=== PATIENT | female | born 1995 | race Hispanic/Latino ===

== ENCOUNTER 2017-09-05 12:07 | Day surgery (SDC) | payer SELFPAY, OTHER ==
[2017-09-05 13:04] VITALS: BP 133/73; TEMP 98.7; BMI 37.1
--- NOTE | 2017-09-05 13:34 | PRG ---
DATE OF SERVICE: 09/05/2017 CHIEF COMPLAINT: Decreased movement. PRIMARY OB: Clinic. HISTORY OF PRESENT ILLNESS: The patient is a 22-year-old G1, P0 female with an intrauterine pregnanc y at 39 weeks and 5 days, who is presenting today with a 1-day history of decreased movement, w hich she reports spontaneously resolved once she got here. The patient had no complications with thi s . She is scheduled for a visit later today. She does report history of migraine s earlier in the that since spontaneously resolved. The patient denies fever, fall, headac he, chest pain, shortness of breath, nausea, vomiting, diarrhea, constipation. She does report Pupps with this and is currently on triamcinolone and hydroxyzine for symptom control. The corwin ent denies vaginal bleeding, leakage of fluid, urinary urgency. OB LABS: Unavailable at time of dictation. REVIEW OF SYSTEMS: Per HPI. PHYSICAL EXAMINATION: VITAL SIGNS: Blood pressure 133/73, heart rate of 99, respiratory rate 18, and temperature 98.7. GENERAL: She appears to be in no acute distress. She is alert and oriented, cooperative and pleasan t to interact with. HEAD: Normocephalic, atraumatic. LUNGS: Clear to auscultation bilaterally. HEART: Regular rate and rhythm. ABDOMEN: Soft and gravid. EXTREMITIES: Nontender, nonedematous. heart tracing performed or NST performed for decreased movement. Baselines in the 150s w ith moderate long-term variability, positive accelerations, no decelerations. Tocometer shows some i rritability, not felt by the patient. ASSESSMENT AND PLAN: The patient is a 22-year-old G1, P0 female with an intrauterine at 39 weeks and 5 days, who came with decreased movement. Reassurance has been given to the patient with a reactive NST. The patient has been given extract instructions to follow up with her primary OB as scheduled.
== END 2017-09-05 13:25 | disposition home or self-care (01) ==
LOC: L&D/OP 12:07
PROVIDERS: ATTEND Obstetrics & Gynecology
DX: O36.8130 Decreased fetal movements, third trimester, not applicable or unspecified (principal); Z3A.39 39 weeks gestation of pregnancy; Z79.52 Long term (current) use of systemic steroids; Z79.899 Other long term (current) drug therapy
CPT/HCPCS: 59025; 99282

== ENCOUNTER 2017-09-09 15:02 | Inpatient (IN) | payer MEDICAID, OTHER, SELFPAY ==
[2017-09-09 15:43] VITALS: BMI 37.1
[2017-09-09 16:06] LABS: Amnisure Test RUPTURE DETECTED (No Rupture)
[2017-09-09 16:08] LABS: Amnisure Internal Control QC ACCEPTABLE (ACCEPTABLE)
[2017-09-09] MEDS ORDERED: Ondansetron HCl/PF 4 MG/2 ML Vial IVP PRN (16:48)
[2017-09-09] MEDS ORDERED: Acetaminophen 500 MG TAB PO PRN (16:48)
[2017-09-09] MEDS ORDERED: Promethazine HCl 25 MG/ML VIAL IM PRN (16:48)
[2017-09-09] MEDS ORDERED: LR / Pitocin 40 units/1000 ml 1,000 ML IV PRN (16:48)
[2017-09-09] MEDS ORDERED: Lidocaine 1% (PF) 30 ML VIAL SC PRN (16:48)
[2017-09-09] MEDS ORDERED: Ibuprofen 800 MG TAB PO PRN (16:55)
[2017-09-09] MEDS ORDERED: Triamcinolone 0.5 % Ointment 15 Gram Tube TOP PRN (17:04)
[2017-09-09 17:12] LABS: Hemoglobin 12.4 g/dL (12.0-16.0); Mean Corpuscular HGB CONC 33.6 g/dL (32.0-36.0); Mean Corpuscular Hemoglobin 29.1 pg (27.0-31.0); Mean Corpuscular Volume 86.5 fl (81.0-99.0); Mean Platelet Volume 8.3 fL (7.4-10.4); Platelet Count 269 thou/uL (130-400); RBC Distribution Width 12.8 % (11.5-14.5); Red Blood Cell (RBC) Count 4.25 mill/uL (4.20-5.40); White Blood Cell (WBC) Count 10.5 thou/uL (4.8-10.8)
[2017-09-09 17:52] LABS: HBSAg Index 0.24 S/CO (0-0.99); Hep B Surf Ag Non-Reactive S/CO (NonReactive)
[2017-09-09 18:01] LABS: Syphilis Antibody Nonreactive (Nonreactive); Syphilis Antibody Index 0.03 S/CO (<1.00 Non-Reactive)
[2017-09-09] MEDS: LR 500 ML/Oxytocin 10 units 500 ML IV SCH (19:08)
--- NOTE | 2017-09-09 22:19 | PDOC.LDPN ---
Labor & Delivery Progress Note - Subjective Subjective: comfortable (22 yo G1 @40.2 wks by LMP presents with PROM. Denies complaints. Feels contractions. ), painful contractions - Objective General: NAD, resting, breathing through contractions Uterine fundus: non tender Dilation: 5 Effacement: 75% Station: -1 FHT: category 1 [place] contractions every: 1-2 minutes - Assessment (1) Term Code(s): Z34.80 - ENCOUNTER FOR SUPRVSN OF NORMAL , UNSP TRIMESTER Current Visit: Yes Status: Acute (2) PROM (premature rupture of membranes) Code(s): O42.90 - AMA ROM, 7TH0 BETW RUPT & ONST LABR, UNSP WEEKS OF GEST Current Visit: Yes Status: Acute (3) PUPP (pruritic urticarial papules and plaques of ) Code(s): O26.86 - PRURITIC URTICARIAL PAPULES AND PLAQUES OF (PUPPP) Current Visit: Yes Status: Acute Plan: continue plan of care, pitocin for augmentation -: 22 yo @ 40.2 wks by LMP, presents for PROM @ 1430 today, admitted. 1.)Term, sIUP with PROM-admitted and currently on pitocin for augmentation of labor. Most recent check /1; We will continue the pitocin and continue labor checks q2h.
[2017-09-09] MEDS: Lactated Ringer's 1,000 ML IV SCH (23:42)
[2017-09-10] MEDS ORDERED: DISCONTINUE ALL PREVIOUS NARCOTICS FS SCH (00:30)
[2017-09-10] MEDS ORDERED: Bupivacaine 0.5% 20 ML, Fentanyl 400 MCG in Sodium Chloride 0.9% 72 ML EPIDURAL SCH (00:30)
[2017-09-10] MEDS ORDERED: Ondansetron HCl/PF 4 MG/2 ML Vial IVP PRN ×3 (01:01→13:16)
[2017-09-10] MEDS ORDERED: ePHEDrine/0.9% NaCl/PF SYRINGE 50 mg/10 ml SLOW IVP PRN (01:01)
[2017-09-10] MEDS ORDERED: Acetaminophen 325 MG TAB PO PRN (01:01)
[2017-09-10] MEDS ORDERED: Promethazine HCl 25 MG/ML VIAL IM PRN ×2 (01:01→13:16)
[2017-09-10] MEDS ORDERED: Eucerin (Mineral Oil/Petrolatum,White) 30 gm Jar TOP PRN ×2 (01:01→13:16)
[2017-09-10] MEDS ORDERED: Lactated Ringer's 500 ML IV PRN (01:01)
[2017-09-10] MEDS ORDERED: diphenhydrAMINE 50 MG/ML VIAL IVP PRN ×2 (01:01→13:16)
[2017-09-10] MEDS ORDERED: Naloxone HCl 0.4 mg/ml Vial IVP PRN ×4 (01:01→13:16)
--- NOTE | 2017-09-10 01:13 | PDOC.LDPN ---
Labor & Delivery Progress Note - Subjective Subjective: painful contractions, vaginal pressure, loss of fluid (she has a posterior sac but reported that she leaked some fluid about an hour ago that was clear), other (22 yo G1 @40.2 wks by LMP presents with PROM. ) - Objective Vital signs reviewed and normal: yes General: breathing through contractions Dilation: 6 Effacement: 90% Station: 0 FHT: category 1 [place] contractions every: 2 minutes IUPC placed: yes - Assessment (1) Term Code(s): Z34.80 - ENCOUNTER FOR SUPRVSN OF NORMAL , UNSP TRIMESTER Current Visit: Yes Status: Acute (2) PROM (premature rupture of membranes) Code(s): O42.90 - AMA ROM, 7TH0 BETW RUPT & ONST LABR, UNSP WEEKS OF GEST Current Visit: Yes Status: Acute (3) PUPP (pruritic urticarial papules and plaques of ) Code(s): O26.86 - PRURITIC URTICARIAL PAPULES AND PLAQUES OF (PUPPP) Current Visit: Yes Status: Acute Plan: continue plan of care, pitocin for augmentation -: 22 yo @ 40.2 wks by LMP, presents for PROM @ 1430 today, admitted for PROM. 1.)Term, sIUP with PROM-admitted and currently on pitocin for augmentation of labor. Most recent check ; We will continue the pitocin and continue labor checks q2h. We placed an IUPC.
[2017-09-10] MEDS ORDERED: Fentanyl 4mcg/Marcaine 0.1% Cassette 100 ML EPIDURAL SCH (01:15)
[2017-09-10] MEDS ORDERED: Communication Order-Pharmacy FS SCH ×2 (01:15→13:30)
--- NOTE | 2017-09-10 03:26 | PDOC.LDPN ---
Labor & Delivery Progress Note - Subjective Subjective: painful contractions, other (22 yo @ 40.2 wks by LMP, presents for PROM @ 1430 today; no compliants; doing well) - Objective Vital signs reviewed and normal: yes General: breathing through contractions Dilation: 6 Effacement: 90% Station: 0 FHT: category 1 [place] contractions every: 2 minutes - Assessment (1) Term Code(s): Z34.80 - ENCOUNTER FOR SUPRVSN OF NORMAL , UNSP TRIMESTER Current Visit: Yes Status: Acute (2) PROM (premature rupture of membranes) Code(s): O42.90 - AMA ROM, 7TH0 BETW RUPT & ONST LABR, UNSP WEEKS OF GEST Current Visit: Yes Status: Acute (3) PUPP (pruritic urticarial papules and plaques of ) Code(s): O26.86 - PRURITIC URTICARIAL PAPULES AND PLAQUES OF (PUPPP) Current Visit: Yes Status: Acute Plan: continue plan of care, pitocin for augmentation -: 22 yo @ 40.2 wks by LMP, presents for PROM @ 1430 today, admitted for PROM. 1.)Term, sIUP with PROM-admitted and currently on pitocin for augmentation of labor. Most recent check - no change from prior check; We will continue the pitocin and continue labor checks q2h. We replaced the IUPC.
[2017-09-10] MEDS: Lactated Ringer's 1,000 ML IV SCH ×3 (03:59→18:25)
--- NOTE | 2017-09-10 04:21 | PDOC.LDPN ---
Labor & Delivery Progress Note - Subjective Subjective: comfortable (G1 @ 40.2 who presented with PROM. No complaints.) - Objective Vital signs reviewed and normal: yes General: NAD, breathing through contractions Dilation: 6 Effacement: 100% Station: 0 [place] contractions every: 1-2minutes Procedures: epidural placed AROM: bloody fluid IUPC placed: yes - Assessment (1) Term Code(s): Z34.80 - ENCOUNTER FOR SUPRVSN OF NORMAL , UNSP TRIMESTER Current Visit: Yes Status: Acute (2) PROM (premature rupture of membranes) Code(s): O42.90 - AMA ROM, 7TH0 BETW RUPT & ONST LABR, UNSP WEEKS OF GEST Current Visit: Yes Status: Acute (3) PUPP (pruritic urticarial papules and plaques of ) Code(s): O26.86 - PRURITIC URTICARIAL PAPULES AND PLAQUES OF (PUPPP) Current Visit: Yes Status: Acute -: 22 yo @ 40.2 wks by LMP, presents for PROM @ 1430 today, admitted for PROM. 1.)Term, sIUP with PROM-admitted and currently on pitocin for augmentation of labor. Most recent check /0; We will continue the pitocin and continue labor checks q2h. Pt received her epidural.
--- NOTE | 2017-09-10 06:29 | PDOC.LDPN ---
Labor & Delivery Progress Note - Subjective Subjective: comfortable, no concerns - Objective Vital signs reviewed and normal: yes General: NAD Dilation: 7 Effacement: 100% Station: -1 FHT: category 1 [place] contractions every: 1-2 minutes Procedures: epidural IUPC placed: yes - Assessment (1) Term Code(s): Z34.80 - ENCOUNTER FOR SUPRVSN OF NORMAL , UNSP TRIMESTER Current Visit: Yes Status: Acute (2) PROM (premature rupture of membranes) Code(s): O42.90 - AMA ROM, 7TH0 BETW RUPT & ONST LABR, UNSP WEEKS OF GEST Current Visit: Yes Status: Acute (3) PUPP (pruritic urticarial papules and plaques of ) Code(s): O26.86 - PRURITIC URTICARIAL PAPULES AND PLAQUES OF (PUPPP) Current Visit: Yes Status: Acute Plan: continue plan of care, pitocin for augmentation, other -: 22 yo @ 40.2 wks by LMP, presents for PROM @ 1430 today, admitted for PROM. 1.)Term, sIUP with PROM- currently on pitocin for augmentation of labor. Most recent check /-1; We will continue the pitocin and continue labor checks q2h. Pt has IUPC and epidural.
[2017-09-10] MEDS: LR 500 ML/Oxytocin 10 units 500 ML IV SCH (08:39)
--- NOTE | 2017-09-10 08:43 | PDOC.LDPN ---
Labor & Delivery Progress Note - Subjective Subjective: comfortable - Objective Vital signs reviewed and normal: yes General: NAD Uterine fundus: palpable contractions Dilation: 10 Effacement: 100% Station: 0 FHT: category 1, variability present, absent or minimal variables [place] contractions every: 1-2 - Assessment (1) PROM (premature rupture of membranes) Code(s): O42.90 - AMA ROM, 7TH0 BETW RUPT & ONST LABR, UNSP WEEKS OF GEST Current Visit: Yes Status: Acute Qualifiers: PROM gestational age: full term Comment: Most recent check . Epidural in place, pain is well controlled. Will allow fetus to labor down. Recheck in 30 mintues. Continue augmentation with pitocin. Cat 1 strip, no concerns. (2) Term Code(s): Z34.80 - ENCOUNTER FOR SUPRVSN OF NORMAL , UNSP TRIMESTER Current Visit: Yes Status: Acute Plan: continue plan of care, pitocin for augmentation
[2017-09-10] MEDS ORDERED: Bupivacaine 0.25% HCL 30 ML VIAL ONE (11:11)
[2017-09-10] MEDS ORDERED: Lidocaine 2% MPF 10 ML AMP (For Epidural Use) ONE ×2 (11:11→15:56)
[2017-09-10] MEDS ORDERED: ePHEDrine/0.9% NaCl/PF SYRINGE 50 mg/10 ml ONE (11:11)
[2017-09-10] MEDS ORDERED: CEFAZOLIN/Water 2 GM/20 ML SYRINGE ONE (11:22)
[2017-09-10] MEDS ORDERED: Bicitra 30 ML UDCUP ONE (11:22)
--- NOTE | 2017-09-10 11:23 | PDOC.LDPN ---
Labor & Delivery Progress Note - Subjective Subjective: comfortable - Objective Vital signs reviewed and normal: yes SVE: C/C/ vtx remains 0 x3 hours [place] contractions every: q 2-3 mins -: 40 week IUP with suspected CPD No progress x3 hours For 1* C/s Consent on chart
[2017-09-10] MEDS ORDERED: CEFAZOLIN/Water 2 GM/20 ML SYRINGE SLOW IVP SCH (11:30)
[2017-09-10] MEDS ORDERED: Bicitra 30 ML UDCUP PO SCH (11:30)
[2017-09-10] MEDS ORDERED: Oxytocin 10 UNITS/ML VIAL ONE ×2 (11:47→12:24)
[2017-09-10] MEDS ORDERED: Morphine PF 1 MG/ML SYR ONE ×2 (11:49→11:50)
[2017-09-10] MEDS ORDERED: Fentanyl 250 MCG/5 ML VIAL ONE (11:58)
[2017-09-10] MEDS ORDERED: Lidocaine 2% 10 ML INJ ONE ×3 (11:59→12:00)
[2017-09-10] MEDS ORDERED: Methylergonovine 0.2 MG/ML VIAL ONE (12:21)
[2017-09-10] MEDS ORDERED: Ondansetron HCl/PF 4 MG/2 ML Vial ONE ×2 (12:30→15:56)
[2017-09-10] MEDS ORDERED: Misoprostol 200 MCG TAB ONE (12:50)
[2017-09-10] MEDS ORDERED: Promethazine HCl 25 MG SUPP PR PRN (13:16)
[2017-09-10] MEDS ORDERED: Naloxone HCl 0.4 mg/ml Vial IV PRN (13:16)
[2017-09-10] MEDS ORDERED: HYDROmorphone 2 MG/ML VIAL SLOW IVP PRN (13:16)
[2017-09-10] MEDS ORDERED: Meperidine HCl/PF 25 MG/ML VIAL SLOW IVP PRN (13:16)
[2017-09-10] MEDS ORDERED: Ketorolac Tromethamine 30 MG/ML VIAL IVP SCH (13:30)
--- NOTE | 2017-09-10 14:54 | OP-2 ---
DATE OF PROCEDURE: 09/10/2017 RESIDENT SURGEON: Dr. Federico Alvarez. MACHINE REPAIR PERSON SURGEON: Dr. Cait Gonzalez. ATTENDING SURGEON: Jesús Trevino M.D. PROCEDURE: Primary low transverse section. PREOPERATIVE DIAGNOSES: 1. Term intrauterine in labor. 2. Prolonged second stage of labor. POSTOPERATIVE DIAGNOSES: 1. Term intrauterine , delivered. 2. hemorrhage. ANESTHESIA: Spinal. INDICATIONS: The patient is a 22-year-old G1, P0 female at 48.3 weeks' gestation who presented in [facility], dilated to 10 cm overnight, but failed to descend past 0 station after 3 hours of being fully di lated, and an hour and a half attempted at pushing. Due to the lack of descent of the head, th e presence of caput on exam and the fact that the patient had been ruptured for almost 20 hours. Dec ision was made with the patient's agreement to move to . PROCEDURE IN DETAIL: After risks, benefits, and alternatives were explained to patient, she gave inf ormed consent. Preoperative antibiotics included cefazolin 2 gram IV. The patient was taken to the operating room and spinal anesthesia was initiated. She was placed in supine position with a left ti lt and prepped and draped in usual sterile fashion. Pfannenstiel incision was made with scalpel and carried down to the level of the fascia, which was sharply nicked. Fascial cut was extended bilatera lly with Maldonado scissors. Inferior and superior edges of the cut fascial edges were elevated with Monzon er clamps and the underlying rectus muscles were sharply and bluntly dissected free. Recti were divi ded digitally and retracted manually. Peritoneum was entered bluntly and retracted manually. Bladde r blade was placed. Bladder flap was created with Metzenbaum scissors. Low transverse score was mad e with scalpel and uterus was entered in the midline with scalpel. Clear fluid was seen. Hysterotom y was extended manually. Infant was noted to be vertex and was easily delivered with fundal pressure . Mouth and nares were bulb suctioned. Cord clamped and cut and grossly normal. Male was chavez nded to waiting nurse. Cord blood was obtained. Placenta was manually extracted and found to be int act with three-vessel cord and discarded. Uterus was externalized and endometrium was treated with a dry lap. Bladder blade was replaced and uterus was closed with a running locking 0 Vicryl suture, f ollowed with running locking 0 Monocryl suture. Following this, hemostasis was noted. The abdomen w as noted to be free of clots as well. The uterus was internalized and hysterotomy was again noted to be hemostatic. The peritoneum was closed with a 3-0 Monocryl. Fascia was closed with a running non locking 0 PDS suture. Subq tissue was irrigated and there were no bleeders. Skin was approximated w ith 4-0 Monocryl and pressure dressing was placed. All counts were correct. The patient tolerated p rocedure well and was taken to recovery room in stable condition. ESTIMATED BLOOD LOSS: 1000 mL COMPLICATIONS: None. SPECIMENS: Cord blood sent to lab for blood type. FINDINGS: Grossly normal male with Apgars of 8 and 9. Grossly normal placenta with three-ves roly cord, discarded. DRAINS: Damon to gravity draining clear urine.
[2017-09-10] MEDS ORDERED: HYDROcodone/Acetaminophen 5/325 mg Tablet PO PRN (15:48)
[2017-09-10] MEDS ORDERED: Lanolin Ointment 7 GM TUBE TOP PRN (15:48)
[2017-09-10] MEDS ORDERED: Misoprostol 200 MCG TAB PR SCH (15:48)
[2017-09-10] MEDS ORDERED: Adacel (T-DAP) 0.5 ML VIAL IM ONE (15:48)
[2017-09-10] MEDS ORDERED: Lidocaine 1% PF 5 ML VIAL ONE (15:56)
[2017-09-10] MEDS: Ketorolac Tromethamine 30 MG/ML VIAL IVP PRN (16:10)
[2017-09-10] MEDS: Ferrous Sulfate 325 MG TAB PO SCH (17:58)
[2017-09-11] MEDS: Lactated Ringer's 1,000 ML IV SCH ×3 (03:52→18:05)
[2017-09-11] MEDS: Ketorolac Tromethamine 30 MG/ML VIAL IVP PRN ×2 (03:53→13:16)
[2017-09-11 06:25] LABS: Hemoglobin 8.1 g/dL (12.0-16.0); Mean Corpuscular HGB CONC 33.9 g/dL (32.0-36.0); Mean Corpuscular Hemoglobin 29.8 pg (27.0-31.0); Mean Corpuscular Volume 87.8 fl (81.0-99.0); Mean Platelet Volume 7.8 fL (7.4-10.4); Platelet Count 199 thou/uL (130-400); RBC Distribution Width 12.8 % (11.5-14.5); Red Blood Cell (RBC) Count 2.71 mill/uL (4.20-5.40); White Blood Cell (WBC) Count 13.5 thou/uL (4.8-10.8)
--- NOTE | 2017-09-11 07:47 | PDOC.PP ---
Post Progress Note Post Day #: 1 Subjective: Feeling well this morning. Pain well controlled. Was able to walk around some yesterday. Damon out. Desires to try and eat breakfast today. PO intake tolerated: no Flatus: no Ambulation: yes Vital Signs (12 hours) Temp Pulse Resp BP 09/11/17 04:40 99.9 F H 117 H 16 101/55 L 09/11/17 00:51 114 H 18 108/54 L 09/11/17 00:00 99.5 F 112 H 18 09/10/17 21:53 112 H 111/58 L 09/10/17 20:00 99.1 F 107 H 20 97/52 L Weight Weight 83.461 kg - Physical Examination General: NAD Cardiovascular: no m/r/g Deviation from normal: tachycardic Respiratory: clear to auscultation bilaterally, non-labored breathing Abdominal: + bowel sounds, appropriately TTP Fundus firm & at: 2cm below umbilicus Extremities: negative homans (B) Skin: CS incision dry & intact, no rash Neurological: no gross focal deficits Psychiatric: A&Ox3, normal affect Result Diagrams: 09/11/17 05:24 Additional Labs: Post Labs Blood Type O POSITIVE 09/09/17 16:40 Hep Bs Antigen Non-Reactive S/CO (NonReactive) 09/09/17 16:40 (1) Term Code(s): Z34.80 - ENCOUNTER FOR SUPRVSN OF NORMAL , UNSP TRIMESTER Status: Acute Comment: Delivered TLGA M via primary LTCS at 1215 on 09/10. Incision c/d/i. (2) PPH ( hemorrhage) Code(s): O72.1 - OTHER IMMEDIATE HEMORRHAGE Status: Acute Comment : EBL 1000cc intraoperatively. Still having some mild bleeding, follow up with H/H tomorrow AM. Continue iron. <Federico Alvarez - Last Filed: 09/11/17 07:53> Weight Weight 83.461 kg Result Diagrams: 09/13/17 05:26 Additional Labs: Post Labs Blood Type O POSITIVE 09/09/17 16:40 Hep Bs Antigen Non-Reactive S/CO (NonReactive) 09/09/17 16:40 <Brenden Trevino - Last Filed: 09/17/17 08:31> Assessment/Plan - Assessment/Plan Plan: Reviewed with Dr. Rand and agree with plan of management. BZ <Brenden Trevino - Last Filed: 09/17/17 08:31>
[2017-09-11] MEDS: Prenatal Vitamin 1 TAB PO SCH (08:51)
[2017-09-11] MEDS: Ferrous Sulfate 325 MG TAB PO SCH ×2 (08:51→17:18)
[2017-09-11] MEDS ORDERED: Sodium Chloride 0.9% 20 ML ONE (13:10)
[2017-09-11] MEDS: Ibuprofen 800 MG TAB PO SCH ×2 (17:17→21:53)
[2017-09-11 17:27] LABS: Hemoglobin 9.3 g/dL (12.0-16.0); Mean Corpuscular HGB CONC 33.6 g/dL (32.0-36.0); Mean Corpuscular Hemoglobin 29.7 pg (27.0-31.0); Mean Corpuscular Volume 88.4 fl (81.0-99.0); Mean Platelet Volume 7.7 fL (7.4-10.4); Platelet Count 236 thou/uL (130-400); Red Blood Cell (RBC) Count 3.12 mill/uL (4.20-5.40); White Blood Cell (WBC) Count 15.8 thou/uL (4.8-10.8)
[2017-09-11] MEDS: LR 500 ML/Oxytocin 10 units 500 ML IV SCH (18:06)
[2017-09-11] MEDS ORDERED: Benzocaine/Menthol 20-0.5% 60 ML CAN TOP PRN (21:42)
[2017-09-11] MEDS ORDERED: HYDROcodone/Acetaminophen 5/325 mg Tablet PO PRN (21:59)
[2017-09-11] MEDS: HYDROcodone/Acetaminophen 5/325 mg Tablet PO PRN (22:05)
[2017-09-12] MEDS: Lactated Ringer's 1,000 ML IV SCH ×3 (00:45→19:11)
[2017-09-12] MEDS: Ibuprofen 800 MG TAB PO SCH ×3 (05:50→22:00)
[2017-09-12 06:15] LABS: #Eosinphils 0.1 thou/uL (0.0-0.7); #Lymphocytes 3.2 thou/uL (1.20-3.40); #Monocytes 0.8 thou/uL (0.11-0.59); #Neutrophils 8.1 thou/uL (1.40-6.50); %Basophils 0.1 % (0.0-1.0); %Eosinophils 0.8 % (0.0-10.0); %Lymphocytes 26.2 % (21.0-51.0); %Monocytes 6.9 % (0.0-10.0); %Neutrophils 65.9 % (42.0-75.0); Hemoglobin 7.6 g/dL (12.0-16.0); Mean Corpuscular HGB CONC 33.3 g/dL (32.0-36.0); Mean Corpuscular Hemoglobin 29.4 pg (27.0-31.0); Mean Corpuscular Volume 88.4 fl (81.0-99.0); Mean Platelet Volume 7.6 fL (7.4-10.4); Platelet Count 216 thou/uL (130-400); RBC Distribution Width 12.9 % (11.5-14.5); Red Blood Cell (RBC) Count 2.57 mill/uL (4.20-5.40); White Blood Cell (WBC) Count 12.3 thou/uL (4.8-10.8)
--- NOTE | 2017-09-12 08:11 | PDOC.PP ---
Post Progress Note Post Day #: 2 Subjective: Feeling better this morning. Had an episode of dizziness yesterday which she attributes to taking norco. Today denies any abd pain, increased bleeding, dizziness. Having some trouble . PO intake tolerated: yes Flatus: yes Ambulation: yes Vital Signs (12 hours) Temp Pulse Resp BP 09/12/17 04:06 97.7 F 102 H 18 99/54 L 09/12/17 00:18 99.0 F 118 H 18 102/59 L Weight Weight 83.461 kg - Physical Examination General: NAD Cardiovascular: no m/r/g, RRR Respiratory: clear to auscultation bilaterally, non-labored breathing Abdominal: + bowel sounds, no distention, appropriately TTP Fundus firm & at: 3cm below umbilicus Extremities: negative homans (B) Skin: CS incision dry & intact, no rash Neurological: no gross focal deficits Psychiatric: A&Ox3, normal affect Result Diagrams: 09/12/17 05:52 Additional Labs: Post Labs Blood Type O POSITIVE 09/09/17 16:40 Hep Bs Antigen Non-Reactive S/CO (NonReactive) 09/09/17 16:40 (1) Term Code(s): Z34.80 - ENCOUNTER FOR SUPRVSN OF NORMAL , UNSP TRIMESTER Status: Acute Comment: Delivered TLGA M via primary LTCS at 1215 on 09/10. Incision c/d/i. (2) PPH ( hemorrhage) Code(s): O72.1 - OTHER IMMEDIATE HEMORRHAGE Status: Acute Comment : EBL 1000cc intraoperatively. Still having some bleeding < menses. Hb dropped again this morning. Will bolus 1L NS, monitor VS througout today, recheck H/H in AM. Continue iron. <Federico Alvarez - Last Filed: 09/12/17 08:30> Vital Signs (12 hours) Temp Pulse Resp BP 09/12/17 08:34 97.9 F 101 H 20 108/59 L 09/12/17 04:06 97.7 F 102 H 18 99/54 L 09/12/17 00:18 99.0 F 118 H 18 102/59 L Weight Weight 184 lb Result Diagrams: 09/12/17 05:52 Additional Labs: Post Labs Blood Type O POSITIVE 09/09/17 16:40 Hep Bs Antigen Non-Reactive S/CO (NonReactive) 09/09/17 16:40 - Assessment/Plan FACULTY NOTE: I assumed care this morning. HX and course reviwed up to today. This patient underwent a primary CS for failure to descend at second stage, single agent ABX given intraop (no ZMax). EBL was 1000ml. Hgh last eval was 7.6 from 12. Otherwise, doing well. Pulse baseline low 100s. She is afebrile. I discussed the case with Dr Dong. We will observe today and probably release home tomorrow. Check HH in AM run. <Julian Hinkle - Last Filed: 09/12/17 08:37>
--- NOTE | 2017-09-12 08:24 | PRG ---
DATE OF SERVICE: 09/12/2017 POSTOPERATIVE NOTE HISTORY OF PRESENT ILLNESS: The patient is postop day 2 status post a primary for cephalop elvic disproportion and arrest of labor. She reports today that she is doing well. Pain is under de cent control. She is ambulating and tolerating p.o. She reports decreased lochia. The patient does report yesterday evening she felt a little bit weak in the legs, walking. Other than that, denies a ny significant shortness of breath, dizziness, and lightheadedness. She believes her symptoms came f rom having taken her narcotic medicine shortly before getting up and about. PHYSICAL EXAMINATION: VITAL SIGNS: Blood pressure 99/54, heart rate 102, temperature 97.7, respiratory rate of 18. GENERAL: She appears to be in no acute distress. She is alert and oriented, cooperative and pleasan t to interact with. HEAD: Normocephalic, atraumatic. ABDOMEN: Soft, appropriately tender. Fundus incision is clean, dry, and intact with suture. LABORATORY DATA: Blood counts this morning shows a white count of 12.3, hemoglobin of 7.6, and hemat ocrit 22.7, which is down from her baseline of 12.4 prior to her and lower than her yesterd ay's hemoglobin of 8.1, hematocrit 23.8. ASSESSMENT AND PLAN: The patient is a 22-year-old female who is postop day 2 status post a primary C -section. She is at risk for infection given the overall picture; however, she has a falling white c ount. She remains afebrile. Her hemoglobin is lower than expected today, however, the patient sympt omatically is doing fine and reports decreasing bleeding. Patient has been asked to contact her nurs e or medical staff if she experiences increasing shortness of breath, dizziness, lightheadedness with activity or at rest. We will consider repeating hemoglobin and hematocrit tomorrow morning.
[2017-09-12] MEDS ORDERED: Sodium Chloride 0.9% 1,000 ML IV SCH (08:30)
[2017-09-12] MEDS: Ferrous Sulfate 325 MG TAB PO SCH ×2 (08:47→19:12)
[2017-09-12] MEDS: Prenatal Vitamin 1 TAB PO SCH (08:47)
[2017-09-12] MEDS: LR 500 ML/Oxytocin 10 units 500 ML IV SCH (19:11)
--- NOTE | 2017-09-13 05:44 | PDOC.PP ---
Post Progress Note Post Day #: 3 Subjective: Doing well. No new concerns this AM. PO intake tolerated: yes Flatus: yes (Patient has also passed a BM without issue.) Ambulation: yes Vital Signs (12 hours) Temp Pulse Resp BP 09/12/17 20:10 97.9 F 108 H 20 117/65 Weight Weight 184 lb - Physical Examination General: NAD Cardiovascular: no m/r/g Respiratory: clear to auscultation bilaterally Abdominal: + bowel sounds, no distention, appropriately TTP Extremities: negative homans (B) Skin: CS incision dry & intact (Sutured closewd) Neurological: no gross focal deficits Psychiatric: A&Ox3, normal affect Result Diagrams: 09/12/17 05:52 Additional Labs: Post Labs Blood Type O POSITIVE 09/09/17 16:40 Hep Bs Antigen Non-Reactive S/CO (NonReactive) 09/09/17 16:40 (1) Term Code(s): Z34.80 - ENCOUNTER FOR SUPRVSN OF NORMAL , UNSP TRIMESTER Status: Acute Comment: Delivered KRISHANGA M via primary LTCS at 1215 on 09/10. Incision c/d/i. (2) state Code(s): Z39.2 - ENCOUNTER FOR ROUTINE FOLLOW-UP Status: Acute (3) Delivery by section using transverse incision of lower segment of uterus Code(s): O82 - ENCOUNTER FOR DELIVERY WITHOUT INDICATION Status: Acute - Assessment/Plan Patient is doing well on POD 3. No evidence of postop complication based on my bedside evaluation. We will send her home and have her follow up with the Clinic in 2 weeks. I will send home with birgit and limited number of Marko (#10).
[2017-09-13 05:45] LABS: Hemoglobin 7.6 g/dL (12.0-16.0); Mean Corpuscular HGB CONC 32.3 g/dL (32.0-36.0); Mean Corpuscular Hemoglobin 28.8 pg (27.0-31.0); Mean Corpuscular Volume 89.1 fl (81.0-99.0); Mean Platelet Volume 7.6 fL (7.4-10.4); Platelet Count 299 thou/uL (130-400); RBC Distribution Width 12.8 % (11.5-14.5); Red Blood Cell (RBC) Count 2.63 mill/uL (4.20-5.40); White Blood Cell (WBC) Count 10.1 thou/uL (4.8-10.8)
--- NOTE | 2017-09-13 05:49 | PDOC.EVN ---
Event Note - Event Note Event Note: DISCHARGE NOTE Admission: 09/09/17 Discharge: 09/13/17 Diagnosis: Prolonged second stage Failure to Descend Delivery by primary LTCS Procedure: Primary Low Transverse CSection Patient was discharged home on POD3 with asymptomatic anemia with last Hgb on file by time of this note being 7.6. There was an EBL of 1000ml at delivery (PPH ). No fatigue or palpitations reported. No lightheadedness. We will send her home on oral Iron medication. Incision was sutured closed at time of CSection. Discharge Meds: Motrin Ultram Ferrous Fumarate
[2017-09-13] MEDS: Ibuprofen 800 MG TAB PO SCH ×3 (05:57→22:01)
--- NOTE | 2017-09-13 08:04 | PDOC.EVN ---
Event Note - Event Note Event Note: Repeat Hct stable this AM
[2017-09-13] MEDS: Prenatal Vitamin 1 TAB PO SCH (08:14)
[2017-09-13] MEDS: Ferrous Sulfate 325 MG TAB PO SCH ×2 (08:14→17:11)
[2017-09-13] MEDS: Lactated Ringer's 1,000 ML IV SCH ×3 (08:14→17:06)
[2017-09-13] MEDS: LR 500 ML/Oxytocin 10 units 500 ML IV SCH (17:06)
[2017-09-13 20:48] VITALS: BP 115/65
[2017-09-14] MEDS: Ibuprofen 800 MG TAB PO SCH ×2 (06:15→13:29)
[2017-09-14 07:53] VITALS: TEMP 98.7
[2017-09-14] MEDS: Ferrous Sulfate 325 MG TAB PO SCH (08:38)
[2017-09-14] MEDS: Prenatal Vitamin 1 TAB PO SCH (08:38)
[2017-09-14] MEDS: HYDROcodone/Acetaminophen 5/325 mg Tablet PO PRN (08:40)
[2017-09-14] MEDS: Lactated Ringer's 1,000 ML IV SCH (09:13)
== END 2017-09-14 13:45 | disposition home or self-care (01) | DRG 765 ==
LOC: L&D/OP 15:02 → L&D 18:30 → 3SW 09-10 15:26
PROVIDERS: ADMIT Obstetrics & Gynecology; ATTEND Obstetrics & Gynecology
PROC: 10D00Z1 Extraction of Products of Conception, Low, Open Approach (ICD-10-PCS; principal; 2017-09-10)
PROC: 10H07YZ Insertion of Other Device into Products of Conception, Via Natural or Artificial Opening (ICD-10-PCS; 2017-09-10)
DX: O42.02 Full-term premature rupture of membranes, onset of labor within 24 hours of rupture (principal); O72.1 Other immediate postpartum hemorrhage; O63.1 Prolonged second stage (of labor); O90.81 Anemia of the puerperium; D64.9 Anemia, unspecified; O64.8XX0 Obstructed labor due to other malposition and malpresentation, not applicable or unspecified; Z3A.40 40 weeks gestation of pregnancy; Z37.0 Single live birth; O26.86 Pruritic urticarial papules and plaques of pregnancy (PUPPP); O36.63X0 Maternal care for excessive fetal growth, third trimester, not applicable or unspecified
CPT/HCPCS: 36415; 51702; 84112; 85025; 85027; 86780; 86850; 86900; 86901; 87340; 99285; A4216; J1885; J2001; J2210; J2274; J2405; J2590; J3010; J3490; J7050; J7120; S0020